=== PATIENT | male | born 1960 | race Caucasian/White ===

== ENCOUNTER 2020-11-10 10:01 | Emergency (ER) | payer OTHER ==
--- NOTE | 2020-11-10 10:59 | RAD REPORT ---
EXAM DESCRIPTION: US - Extremity Venous Uni Ltd - 11/10/2020 10:35 am CLINICAL HISTORY: PAIN, recent surgery COMPARISON: None. TECHNIQUE: Real-time sonographic evaluation of the left lower extremity deep venous system was perfo rmed. FINDINGS: Normal compressibility, flow augmentation, phasic flow and spontaneous flow are identified in the left lower extremity common femoral, superficial femoral, popliteal and posterior tibial vein s. No intraluminal filling defects seen. IMPRESSION: No DVT in the left lower extremity.
--- NOTE | 2020-11-10 13:00 | EDPHYS ---
Physician Documentation [facility] Name: Romero Russell III Age: 60 yrs Sex: Male : 1960 Arrival Date: 11/10/2020 Time: 10:03 Bed 24 Private MD: ED Physician Morenita Avendano HPI: 11/10 12:55 This 60 yrs old Male presents to ER via Ambulatory with complaints of r/o ma2 dvt, Leg Pain. 12:55 The patient presents with pain. Onset: The symptoms/episode began/occurred gradually, 1 ma2 day(s) ago. Associated signs and symptoms: Pertinent negatives nausea, rash, tingling. Severity of symptoms: At their worst the symptoms were mild, in the emergency department the symptoms are unchanged. The patient has not experienced similar symptoms in the past. had left foot tendon repair last week and started having left calf pain 3 days ago, set here by surgeon to rule out dvt.. he declined pain rx in er, . Historical: - Allergies: 10:14 Percocet; iw - PMHx: 10:14 Diabetes - NIDDM; Hypertension; Hyperlipidemia; iw - Immunization history:: Adult Immunizations. - Social history:: Patient/guardian denies using alcohol, street drugs, The patient lives with family, Smoking status: . ROS: 12:55 Constitutional: Negative for fever, chills, and weight loss. ma2 12:55 All other systems are negative. Exam: 12:55 Constitutional: This is a well developed, well nourished patient who is awake, alert, ma2 and in no acute distress. Head/Face: Normocephalic, atraumatic. Eyes: Pupils equal round and reactive to light, extra-ocular motions intact. Lids and lashes normal. Conjunctiva and sclera are non-icteric and not injected. Cornea within normal limits. Periorbital areas with no swelling, redness, or edema. ENT: Nares patent. No nasal discharge, no septal abnormalities noted. Tympanic membranes are normal and external auditory canals are clear. Oropharynx with no redness, swelling, or masses, exudates, or evidence of obstruction, uvula midline. Mucous membranes moist. Neck: Trachea midline, no thyromegaly or masses palpated, and no cervical lymphadenopathy. Supple, full range of motion without nuchal rigidity, or vertebral point tenderness. No Meningismus. Chest/axilla: Normal chest wall appearance and motion. Nontender with no deformity. No lesions are appreciated. Cardiovascular: Regular rate and rhythm with a normal S1 and S2. No gallops, murmurs, or rubs. Normal PMI, no JVD. No pulse deficits. Respiratory: Lungs have equal breath sounds bilaterally, clear to auscultation and percussion. No rales, rhonchi or wheezes noted. No increased work of breathing, no retractions or nasal flaring. Abdomen/GI: Soft, non-tender, with normal bowel sounds. No distension or tympany. No guarding or rebound. No evidence of tenderness throughout. Skin: Warm, dry with normal turgor. Normal color with no rashes, no lesions, and no evidence of cellulitis. MS/ Extremity: left foot sugical site is in good order. Pulses equal, no cyanosis. Neurovascular intact. Full, normal range of motion. Neuro: Awake and alert, GCS 15, oriented to person, place, time, and situation. Cranial nerves II-XII grossly intact. Motor strength 5/5 in all extremities. Sensory grossly intact. Cerebellar exam normal. Normal gait. 12:55 Musculoskeletal/extremity: Extremities: ROM: intact in all extremities, Circulation is intact in all extremities. Sensation intact. Compartment Syndrome exam of affected extremity: is normal. no pain, Tendon exam: specific tendon testing normal through active and passive range of motion DVT Exam: No signs of deep vein thrombosis. no pain, no swelling, no tenderness, negative Homans' sign noted on exam, no appreciated bluish discoloration, no erythema, no increased warmth, Calves: are non-tender, have equal circumference. Vital Signs: 10:14 BP 112 / 79; Pulse 75; Resp 16; Temp 98.7; Pulse Ox 99% on R/A; Weight 113.4 kg; Height iw 5 ft. 11 in. (180.34 cm); 10:14 Body Mass Index 34.87 (113.40 kg, 180.34 cm) iw MDM: 12:21 Patient medically screened. ma2 12:55 Differential diagnosis: contusion, abrasion, tendonitis, unlikely dvt, since us is ma2 negative, i explained the need to repeat us dvt rule out in 3-6 days as fresh clott is could be compressible early on which will result in false negative test. Data reviewed: vital signs, nurses notes. Counseling: I had a detailed discussion with the patient and/or guardian regarding: the historical points, exam findings, and any diagnostic results supporting the discharge/admit diagnosis, the presence of at least one elevated blood pressure reading (>120/80) during this emergency department visit, the need for outpatient follow up. Response to treatment: the patient's symptoms have markedly improved after treatment. 11/10 10:18 Order name: US Extremity Venous Unilateral Ltd; Complete Time: 12:21 iw Administered Medications: No medications were administered Disposition: 11/10/20 12:59 Discharged to Home. Impression: Pain in left leg. - Condition is Stable. - Discharge Instructions: Musculoskeletal Pain, Heat Therapy. - Medication Reconciliation Form, Thank You Letter, Antibiotic Education, Prescription Opioid Use form. - Follow up: Private Physician; When: Tomorrow; Reason: If symptoms return, Continuance of care. Signatures: Dispatcher [employer] Meghan Hager RN RN iw Alzahri, Mohammad, MD MD ma2 Corrections: (The following items were deleted from the chart) 13:20 12:59 11/10/2020 12:59 Discharged to Home. Impression: Pain in left leg. Condition is iw Stable. Forms are Medication Reconciliation Form, Thank You Letter, Antibiotic Education, Prescription Opioid Use. Follow up: Private Physician; When: Tomorrow; Reason: If symptoms return, Continuance of care. ma2
--- NOTE | 2020-11-10 13:00 | ER ---
Nurse's Notes [facility] Name: Romero Russell III Age: 60 yrs Sex: Male : 1960 Arrival Date: 11/10/2020 Time: 10:03 Bed 24 Private MD: Diagnosis: Pain in left leg Presentation: 11/10 10:11 Chief complaint: Patient states: had bone spur and plantar fascitis surgery on iw , yesterday noticed bruising in left calf area and it was tender , was sent to have US to R/O DVT. Coronavirus screen: At this time, the client does not indicate any symptoms associated with coronavirus-19. Ebola Screen: Patient negative for fever greater than or equal to 101.5 degrees Fahrenheit, and additional compatible Ebola Virus Disease symptoms Patient denies exposure to infectious person. Patient denies travel to an Ebola-affected area in the 21 days before illness onset. No symptoms or risks identified at this time. Initial Sepsis Screen: Does the patient meet any 2 criteria? No. Patient's initial sepsis screen is negative. Does the patient have a suspected source of infection? No. Patient's initial sepsis screen is negative. Risk Assessment: Do you want to hurt yourself or someone else? Patient reports no desire to harm self or others. Onset of symptoms was November 06, 2020. 10:11 Method Of Arrival: Ambulatory iw 10:11 Acuity: MANISHA 3 iw Triage Assessment: 13:00 General: Appears in no apparent distress. Behavior is calm, cooperative. iw Historical: - Allergies: 10:14 Percocet; iw - PMHx: 10:14 Diabetes - NIDDM; Hypertension; Hyperlipidemia; iw - Immunization history:: Adult Immunizations. - Social history:: Patient/guardian denies using alcohol, street drugs, The patient lives with family, Smoking status: . Screenin:15 Abuse screen: Denies threats or abuse. Denies injuries from another. Nutritional iw screening: No deficits noted. Tuberculosis screening: No symptoms or risk factors identified. Fall Risk None identified. Assessment: 12:45 General: Appears in no apparent distress. comfortable, Behavior is calm, cooperative. iw Pain: Complains of pain in left calf. Neuro: Level of Consciousness is awake, alert, obeys commands, Oriented to person, place, time, situation, Moves all extremities. Full function. Cardiovascular: Patient's skin is warm and dry. Respiratory: Respiratory effort is even, unlabored, Respiratory pattern is regular. Derm: Skin is intact, is healthy with good turgor. Musculoskeletal: Range of motion: intact in all extremities. Vital Signs: 10:14 BP 112 / 79; Pulse 75; Resp 16; Temp 98.7; Pulse Ox 99% on R/A; Weight 113.4 kg; Height iw 5 ft. 11 in. (180.34 cm); 10:14 Body Mass Index 34.87 (113.40 kg, 180.34 cm) iw ED Course: 10:03 Patient arrived in ED. am2 10:12 Triage completed. iw 10:35 US Extremity Venous Unilateral Ltd In Process Unspecified. EDMS 12:21 Morenita Avendano MD is Attending Physician. ma2 12:40 Arm band placed on. iw 12:45 Patient has correct armband on for positive identification. iw 13:15 Meghan Cam RN is Primary Nurse. iw 13:19 No provider procedures requiring assistance completed. Patient did not have IV access iw during this emergency room visit. Administered Medications: No medications were administered Outcome: 12:59 Discharge ordered by . ma2 13:19 Discharged to home ambulatory. iw 13:19 Condition: good 13:19 Discharge instructions given to patient, Instructed on discharge instructions, follow up and referral plans. Demonstrated understanding of instructions, follow-up care. 13:20 Patient left the ED. iw Signatures: Dispatcher [employer] EDMS Meghan Cam RN RN Neha Julian am2 Morenita Avendano MD MD ma2
[2020-11-10 13:59] VITALS: BP 112/79; TEMP 98.7; O2SAT 99
== END 2020-11-10 13:20 | disposition home or self-care (01) ==
LOC: ER 10:01
DX: M79.662 Pain in left lower leg (principal); I10 Essential (primary) hypertension; Z88.5 Allergy status to narcotic agent
CPT/HCPCS: 93971; 99283

== ENCOUNTER 2022-01-29 13:53 | Emergency (ER) | payer OTHER ==
--- OUTSIDE RECORDS SUMMARY | 2022-01-29 13:56 | XMS REPORT | Continuity of Care Document ---
:1960 Author Organization [facility] t Address [address] [place] [address] Dr. Conklin [address] [place] [id number] Care Team Providers Name Role Phone DR DEANDRE Attending Clinician Unavailable DR DEANDRE Admitting Clinician Unavailable Problems This patient has no known problems. Allergies, Adverse Reactions, Alerts This patient has no known allergies or adverse reactions. Medications This patient has no known medications. Procedures This patient has no known procedures. Encounters Start End Encounter Admission Attending Care Care Encounter Source Date/Time Date/Time Type Type Clinicians Facility Department ID 2020-10-24 2020-10-24 Outpatient [facility] [place] [id number] Results This patient has no known results.
[2022-01-29 14:41] LABS: Absolute Lymphocytes (CBC) 2.8 K/uL (0.7-4.9); Hematocrit 46.3 % (39.6-49.0); Lymphocytes % 27.5 % (15.3-44.8); MPV 8.9 fL (7.6-11.3); RBC Red Blood Cell Count 4.99 M/uL (4.33-5.43)
[2022-01-29 14:57] LABS: Albumin 4.2 g/dL (3.4-5.0); Bilirubin Total 0.6 mg/dL (0.2-1.0); Potassium 3.9 mmol/L (3.5-5.1); Protein, Total 7.8 g/dL (6.4-8.2)
--- NOTE | 2022-01-29 16:03 | RAD REPORT ---
EXAM DESCRIPTION: CTAbdomen Pelvis W Contrast - 01/29/2022 3:48 pm CLINICAL HISTORY: abdominal pain, constipation COMPARISON: No comparisons TECHNIQUE: CT of the abdomen and pelvis was performed. All CT scans are performed using dose optimization technique as appropriate and may include automated exposure control or mA/KV adjustment according to patient size. FINDINGS: Lower chest: Pacemaker. Liver: No acute abnormality or suspicious lesions. Biliary: No biliary ductal dilatation. Stomach: No significant focal abnormality. Duodenum: No significant focal abnormality. Pancreas: No significant abnormality. Spleen: No significant abnormality. Adrenal: No suspicious lesions. Kidney/ureter: No hydronephrosis. No renal calculi. Retroperitoneum: No retroperitoneal adenopathy. Vascular: No aneurysm. Mild atherosclerosis . Bowel: No significant focal abnormality. Appendix not confidently identified but no secondary signs o f acute appendicitis. Peritoneum: No ascites or free air. Fat containing right inguinal hernia Bladder: Part of the ventral wall the bladder is angulated and retracted toward the right inguinal he rnia. This is typically of little clinical significance. Reproductive: No adnexal masses. Bones: No acute fracture. Broad-based disc bulges are present at L2-3, L3-4, and L4-5. Neural foramin al narrowing is noted at multiple levels. This could be better assessed with MRI. Other: n/a IMPRESSION: No acute intra-abdominal or pelvic finding. Nonvisualized appendix but no secondary sign s of acute appendicitis. A few incidental findings as noted above.
[2022-01-29] MEDS ORDERED: METHYLPREDNISOLONE 125 MG INJ ONE (17:00)
[2022-01-29] MEDS ORDERED: KETOROLAC 30 MG/ML INJ ONE (17:00)
--- NOTE | 2022-01-29 17:10 | ER ---
Nurse's Notes [facility] Name: Romero Russell III Age: 61 yrs Sex: Male : 1960 Arrival Date: 01/29/2022 Time: 13:56 Bed 18 Private MD: Diagnosis: Sciatica, left side Presentation: 01/29 14:05 Chief complaint: Patient states: lower back pain radiating to left leg that began aa5 Tuesday. Pt also reports some abdominal pain, reports recent diagnosis of inguinal hernia. Onset of symptoms was January 2022. 14:05 Coronavirus screen: At this time, the client does not indicate any symptoms associated aa5 with coronavirus-19. Ebola Screen: No symptoms or risks identified at this time. Initial Sepsis Screen: Does the patient meet any 2 criteria? No. Patient's initial sepsis screen is negative. Does the patient have a suspected source of infection? No. Patient's initial sepsis screen is negative. Risk Assessment: Do you want to hurt yourself or someone else? Patient reports no desire to harm self or others. 14:05 Method Of Arrival: Wheelchair aa5 14:05 Acuity: MANISHA 3 aa5 Historical: - Allergies: 14:06 Percocet; aa5 - Home Meds: 14:12 aspirin 81 mg Oral chew once daily [Active]; topiramate 150 mg oral CSpX once daily aa5 [Active]; omeprazole 20 mg Oral cpDR once daily [Active]; fluticasone propionate 50 mcg/actuation nasal spsn 1 spray 2 times per day [Active]; hydrochlorothiazide 25 mg Oral tab once daily [Active]; loratadine 10 mg oral tab 1 tab once daily [Active]; finasteride 5 mg oral tab 1 tab once daily [Active]; cyanocobalamin (vitamin B-12) 500 mcg oral tab daily for prevention of vitamin B12 deficiency [Active]; diclofenac topical [Active]; atenolol 50 mg Oral tab 1.5 tabs once daily [Active]; atorvastatin 20 mg oral tab once daily [Active]; magnesium oxide 420 mg Oral tab daily [Active]; Metformin Oral [Active]; meloxicam oral [Active]; Cyclobenzaprine Oral [Active]; - PMHx: 14:06 Diabetes - NIDDM; Hyperlipidemia; Hypertension; aa5 - Immunization history:: Adult Immunizations unknown. - Social history:: Smoking status: Patient reports the use of cigarette tobacco products, smokes one pack cigarettes per day. Assessment: 17:55 Reassessment: Patient appears in no apparent distress at this time. Patient and/or iw family updated on plan of care and expected duration. Pain level reassessed. Patient is alert, oriented x 3, equal unlabored respirations, skin warm/dry/pink. Vital Signs: 14:05 BP 122 / 83; Pulse 71; Resp 16 S; Temp 98.2(O); Pulse Ox 100% on R/A; Weight 111.13 kg aa5 (R); Height 5 ft. 11 in. (180.34 cm) (R); 14:05 Body Mass Index 34.17 (111.13 kg, 180.34 cm) aa5 ED Course: 13:56 Patient arrived in ED. rg4 13:58 Crist[facility] Sweet FNP-C [facility] kb 13:58 Morenita Avendano MD is Attending Physician. kb 14:05 Triage completed. aa5 14:05 Arm band placed on. aa5 14:20 Adriana Bower, RN is Primary Nurse. jeong 14:31 Inserted saline lock: 20 gauge in left antecubital area, using aseptic technique. Blood zm collected. 14:32 CBC with Diff Sent. zm 14:32 CMP Sent. zm 14:32 Lipase Sent. zm 15:50 CT Abd/Pelvis - IV Contrast Only In Process Unspecified. EDMS 17:55 No provider procedures requiring assistance completed. IV discontinued, intact, iw bleeding controlled, No redness/swelling at site. Pressure dressing applied. Administered Medications: 16:35 Drug: NS 0.9% 1000 ml Route: IV; Rate: 1 bolus; Site: left antecubital; jeong 17:06 Drug: Ketorolac 15 mg Route: IVP; Site: left antecubital; iw 17:06 Drug: SOLU-Medrol (methylPrednisoLONE) 125 mg Route: IVP; Site: left antecubital; iw Outcome: 17:10 Discharge ordered by . kb 17:55 Discharged to home ambulatory, with family. iw 17:55 Condition: good 17:55 Discharge instructions given to patient, Instructed on discharge instructions, follow up and referral plans. medication usage, Demonstrated understanding of instructions, follow-up care, medications, Prescriptions given X 1. 17:55 Patient left the ED. iw Signatures: Dispatcher [employer] EDCrista Sanches, CHELO-C INTERNAL COMBUSTION ENGINE INSPECTOR-Meghan Sharma RN RN iw Calderon, Audri, RN RN Kirsten Cruz rg4 Carol-StagerAdriana RN RN ha Martinez, Zaina zm Corrections: (The following items were deleted from the chart) 14:07 14:05 Chief complaint: Patient states: lower back pain radiating to left leg that began aa5 Tuesday. aa5 14:08 14:05 Chief complaint: Patient states: lower back pain radiating to left leg that began aa5 Tuesday. Pt also reports some abdominal pain, reports recent diagnosis of hernia. aa5 14:10 14:05 Acuity: MANISHA 4 aa5 aa5 14:11 14:05 Pulse 71bpm; Pulse Ox 100% RA; aa5 aa5 14:12 14:05 Pulse 71bpm; Resp 16bpm; Spontaneous; Pulse Ox 100% RA; Temp 98.2F Oral; 111.13 aa5 kg Reported; Height 5 ft. 11 in. Reported; BMI: 34.1; aa5
--- NOTE | 2022-01-29 17:10 | EDPHYS ---
Physician Documentation [facility] Name: Romero Russell III Age: 61 yrs Sex: Male : 1960 Arrival Date: 01/29/2022 Time: 13:56 Bed 18 Private MD: ED Physician Morenita Avendano HPI: 01/29 16:24 This 61 yrs old Male presents to ER via Wheelchair with complaints of Leg Pain, Back kb Pain. 16:24 The patient presents with pain that is acute, with no known mechanism of injury. The kb symptoms are located in the left low back. The pain radiates to the left leg. The problem was sustained from unknown cause. Onset: The symptoms/episode began/occurred 4 day(s) ago. Modifying factors: The patient symptoms are alleviated by nothing, the patient symptoms are aggravated by any movement. Associated signs and symptoms: The patient has no apparent associated signs or symptoms. Severity of symptoms: At their worst the symptoms were moderate, in the emergency department the symptoms are unchanged. The patient has not experienced similar symptoms in the past. The patient has been recently seen by a physician: the ER physician, in [place]. Pt reports left low back pain that radiates to left buttock and down left leg. States it started Tuesday. Went to [place] and was given meloxicam and flexeril, but pain persists. States he had a CT, blood work and US at [place] (results reviewed) that revealed a hernia only. . Historical: - Allergies: 14:06 Percocet; aa5 - Home Meds: 14:12 aspirin 81 mg Oral chew once daily [Active]; topiramate 150 mg oral CSpX once daily aa5 [Active]; omeprazole 20 mg Oral cpDR once daily [Active]; fluticasone propionate 50 mcg/actuation nasal spsn 1 spray 2 times per day [Active]; hydrochlorothiazide 25 mg Oral tab once daily [Active]; loratadine 10 mg oral tab 1 tab once daily [Active]; finasteride 5 mg oral tab 1 tab once daily [Active]; cyanocobalamin (vitamin B-12) 500 mcg oral tab daily for prevention of vitamin B12 deficiency [Active]; diclofenac topical [Active]; atenolol 50 mg Oral tab 1.5 tabs once daily [Active]; atorvastatin 20 mg oral tab once daily [Active]; magnesium oxide 420 mg Oral tab daily [Active]; Metformin Oral [Active]; meloxicam oral [Active]; Cyclobenzaprine Oral [Active]; - PMHx: 14:06 Diabetes - NIDDM; Hyperlipidemia; Hypertension; aa5 - Immunization history:: Adult Immunizations unknown. - Social history:: Smoking status: Patient reports the use of cigarette tobacco products, smokes one pack cigarettes per day. ROS: 16:23 Constitutional: Negative for fever, chills, and weight loss. kb 16:23 Abdomen/GI: Positive for abdominal pain, constipation. 16:23 Back: Positive for pain at rest, pain with movement, radiated pain, of the left low back. 16:23 All other systems are negative. Exam: 16:21 Constitutional: This is a well developed, well nourished patient who is awake, alert, kb and in no acute distress. Head/Face: Normocephalic, atraumatic. ENT: Moist Mucous membranes Cardiovascular: Regular rate and rhythm with a normal S1 and S2. No gallops, murmurs, or rubs. No pulse deficits. Respiratory: Respirations even and unlabored. No increased work of breathing. Talking in full sentences Skin: Warm, dry with normal turgor. Normal color. MS/ Extremity: Pulses equal, no cyanosis. Neurovascular intact. Full, normal range of motion. Neuro: Awake and alert, GCS 15, oriented to person, place, time, and situation. Moves all extremities. Normal gait. Psych: Awake, alert, with orientation to person, place and time. Behavior, mood, and affect are within normal limits. 16:21 Abdomen/GI: Inspection: abdomen appears normal, Bowel sounds: normal, in all quadrants, Palpation: soft, in all quadrants, moderate abdominal tenderness, in the right lower quadrant and left lower quadrant. 16:21 Back: pain, that is moderate, of the left low back, ROM is normal. Vital Signs: 14:05 BP 122 / 83; Pulse 71; Resp 16 S; Temp 98.2(O); Pulse Ox 100% on R/A; Weight 111.13 kg aa5 (R); Height 5 ft. 11 in. (180.34 cm) (R); 14:05 Body Mass Index 34.17 (111.13 kg, 180.34 cm) aa5 MDM: 14:09 Patient medically screened. kb 16:21 Data reviewed: vital signs, nurses notes. Data interpreted: Pulse oximetry: on room air kb is 100 %. Interpretation: normal. Counseling: I had a detailed discussion with the patient and/or guardian regarding: the historical points, exam findings, and any diagnostic results supporting the discharge/admit diagnosis, lab results, radiology results, the need for outpatient follow up, a family practitioner, to return to the emergency department if symptoms worsen or persist or if there are any questions or concerns that arise at home. 16:28 ED course: No vertebral tenderness, numbness tingling. Tenderness upon palpation starts kb at left low back just above buttock.. 01/29 14:10 Order name: CBC with Diff; Complete Time: 15:26 kb 01/29 14:10 Order name: CMP; Complete Time: 14:57 kb 01/29 14:10 Order name: Lipase; Complete Time: 14:57 kb 01/29 14:10 Order name: CT Abd/Pelvis - IV Contrast Only; Complete Time: 16:13 kb 01/29 14:10 Order name: IV Saline Lock; Complete Time: 14:31 kb 01/29 14:10 Order name: Labs collected and sent; Complete Time: 14:31 kb Administered Medications: 16:35 Drug: NS 0.9% 1000 ml Route: IV; Rate: 1 bolus; Site: left antecubital; jeong 17:06 Drug: Ketorolac 15 mg Route: IVP; Site: left antecubital; iw 17:06 Drug: SOLU-Medrol (methylPrednisoLONE) 125 mg Route: IVP; Site: left antecubital; iw Disposition: 01/30 08:08 Co-signature as Attending Physician, Morenita Avendano MD I agree with the assessment ma2 and plan of care. Disposition Summary: 01/29/22 17:10 Discharge Ordered Location: Home kb Condition: Stable kb Diagnosis - Sciatica, left side kb Followup: kb - With: Private Physician - When: 2 - 3 days - Reason: Recheck today's complaints, Continuance of care, Re-evaluation by your physician Followup: kb - With: Emergency Department - When: As needed - Reason: Worsening of condition Discharge Instructions: - Discharge Summary Sheet kb - Sciatica, [id number] kb - Back Exercises, [id number] kb Forms: - Medication Reconciliation Form kb - Thank You Letter kb - Antibiotic Education kb - Prescription Opioid Use kb Prescriptions: - Prednisone 20 mg Oral Tablet - take 1 tablet by ORAL route once daily for 5 days; 5 tablet; Refills: 0, kb Product Selection Permitted Signatures: Dispatcher [employer] Crista Varela, BIODIES[employer] PRODUCTION ASSOCIATE-C CHELO-Meghan Sharma RN RN iw Elaina Salmon RN RN aa5 Morenita Avendano MD MD ma2 Adriana Bower RN RN jeong
[2022-01-29 18:01] VITALS: BP 122/83; TEMP 98.2; O2SAT 100
== END 2022-01-29 17:55 | disposition home or self-care (01) ==
LOC: ER 13:53
DX: M54.32 Sciatica, left side (principal); E11.9 Type 2 diabetes mellitus without complications; I10 Essential (primary) hypertension; E78.5 Hyperlipidemia, unspecified; Z79.82 Long term (current) use of aspirin; Z88.5 Allergy status to narcotic agent
CPT/HCPCS: 85025; 36415; 83690; 80053; 74177; 96375; 96374; 99284; Q9967; J2930